=== PATIENT | female | born 1965 ===

== ENCOUNTER 2018-03-10 18:42 | Observation (INO) | payer MEDICAID, OTHER ==
[2018-03-10] MEDS ORDERED: Sodium Chloride 0.9% 1,000 ML IV STA (19:24)
--- NOTE | 2018-03-10 19:29 | ED PDOC ---
HPI: Chest Pain Time Seen by Provider: 03/10/18 19:01 Chief Complaint (Nursing): Chest Pain Chief Complaint (Provider): chest pain History Per: Patient History/Exam Limitations: no limitations Onset/Duration Of Symptoms: Days (4) Current Symptoms Are (Timing): Still Present Additional Complaint(s): Pt. with chest pain for 4 days with dyspnea. Also has numbness in both hands with pain in both antecubitus areas. Also has weakness all over with light- headedness and mild headache all over. Headache is not the worst in her life. Is mild and gradual onset. No nausea, vomit, diarrhea, abd pain. No leg pain , long distance travel, or hormone use. Past Medical History Reviewed: Nursing Documentation, Vital Signs Vital Signs: Last Vital Signs Temp 98.0 F 03/10/18 18:53 Pulse 84 03/10/18 19:06 Resp 19 03/10/18 18:53 BP 120/86 03/10/18 19:06 Pulse Ox 97 03/10/18 19:30 - Medical History PMH: HTN, Hypothyroidism Other PMH: arrythmia - Surgical History Surgical History: No Surg Hx - Family History Family History: States: Unknown Family Hx - Living Arrangements Living Arrangements: With Family - Allergies Allergies/Adverse Reactions: Allergies Allergy/AdvReac Type Severity Reaction Status Date / Time No Known Allergies Allergy Verified 03/10/18 18:53 Review of Systems ROS Statement: Except As Marked, All Systems Reviewed And Found Negative Cardiovascular: Positive for: Chest Pain, Light Headedness Respiratory: Positive for: Shortness of Breath Neurological: Positive for: Weakness, Numbness, Dizziness Physical Exam - Reviewed Nursing Documentation Reviewed: Yes Vital Signs Reviewed: Yes - Physical Exam Appears: Positive for: Non-toxic, No Acute Distress Head Exam: Positive for: ATRAUMATIC, NORMAL INSPECTION, NORMOCEPHALIC Skin: Positive for: Normal Color, Warm, DRY Eye Exam: Positive for: EOMI, Normal appearance, PERRL ENT: Positive for: Normal ENT Inspection Neck: Positive for: Normal, Painless ROM Cardiovascular/Chest: Positive for: Regular Rate, Rhythm. Negative for: Edema Respiratory: Positive for: CNT, Normal Breath Sounds Gastrointestinal/Abdominal: Positive for: Normal Exam, Soft. Negative for: Tenderness Back: Positive for: Normal Inspection. Negative for: L CVA Tenderness, R CVA Tenderness Extremity: Positive for: Normal ROM. Negative for: Tenderness, Pedal Edema Neurologic/Psych: Positive for: Alert, loan operations manager II-XII, Oriented. Negative for: Motor/Sensory Deficits, Mood/Affect, Aphasia, Facial Droop - Laboratory Results Result Diagrams: 03/10/18 19:44 03/10/18 19:44 - ECG ECG: Positive for: Interpreted By Me, Viewed By Me ECG Rhythm: Positive for: Normal QRS, Normal ST Segment, Sinus Rhythm O2 Sat by Pulse Oximetry: 97 Pulse Ox Interpretation: Normal - Radiology X-Ray: Interpreted by Me, Viewed By Me X-Ray Interpretation: No Acute Disease - CT Scan/US ct Other Rad Studies (CT/US): Read By Radiologist Other Rad Interpretation: no acute - Progress ED Course And Treament: 2332: Stable. AAOx3. Considering risk factors and pain with no prior work up , will admit. Spoke with Dr. Samson. Will admit for further eval and acs r/o. Pain gone currently. Disposition - Clinical Impression Clinical Impression: Chest pain - Patient ED Disposition Is Patient to be Admitted: Yes Counseled Patient/Family Regarding: Studies Performed, Diagnosis - Disposition Disposition Time: 23:33 Condition: STABLE - Pt Status Changed To: Hospital Disposition Of: Observation - POA Present On Arrival: None
[2018-03-10 19:59] LABS: ALBUMIN 4.3 g/dL (3.5-5.0); ALT/SGPT 47 U/L (9-52); AST/SGOT 36 U/L (14-36); BLOOD UREA NITROGEN 21 mg/dl (7-17); CALCIUM 9.7 mg/dL (8.4-10.2); GFR AFRICAN-AMERICAN > 60; GFR NON-AFRICAN AMERICAN > 60; HDL CHOLESTEROL 33 MG/DL (30-70)
[2018-03-10 20:06] LABS: INR 1.1 (0.9-1.2); PARTIAL THROMBOPLASTIN TIME 30.6 Seconds (25.6-37.1); PROTHROMBIN TIME 11.9 Seconds (9.8-13.1)
[2018-03-10 20:08] LABS: BASO # 0.1 K/uL (0.0-0.2); BASO % 0.7 % (0.0-2.0); EOS # 0.3 K/uL (0.0-0.7); EOS % 2.7 % (0.0-4.0); HEMOGLOBIN 12.3 g/dL (12.0-16.0); LYMPH # 3.1 K/uL (1.0-4.3); LYMPH % 29.3 % (20.0-40.0); MEAN CELL VOLUME 86.2 fl (81.0-99.0); MEAN CORPUSCULAR HGB CONC 33.6 g/dL (33.0-37.0); MEAN PLATELET VOLUME 7.1 fl (7.2-11.7); MONO # 0.6 K/uL (0.0-0.8); MONO % 5.8 % (0.0-10.0); NEUT # 6.5 K/uL (1.8-7.0); NEUT % 61.5 % (50.0-75.0); NRBC % 0.1 % (0.0-0.0); RBC 4.24 Mil/uL (3.80-5.20); RED CELL DISTRIBUTION WIDTH 14.4 % (11.5-14.5); WHITE BLOOD COUNT 10.6 K/uL (4.8-10.8)
[2018-03-10 20:10] LABS: LDL CHOLESTEROL 115 mg/dL (0-129)
--- NOTE | 2018-03-11 08:57 | CP.PCM.HP ---
History of Present Illness - History of Present Illness History of Present Illness: CC: chest pain HPI: 52 y/o woman w/ pmh of HTN and hypothyroidism presented to the ED w/ chest pain. Patient reports chest pain for 4 days with associated dyspnea. Patient reports that she cannot walk more than a block before becoming short of breath. Patient also reports numbness in both hands with pain in both antecubitus areas. Patient reports general weakness w/ light-headedness and mild tension headache. Patient denies abdominal pain, nausea, vomiting, diarrhea, dysuria, fever, leg pain, long distance travel, or hormone use. PMD: [facility] PMH: HTN, hypothyroidism meds: see med list allergies: NKDA PSH: x3 Fam: reports family histroy of HTN and other unknown heart issues SOC: denies smoking, alcohol, and drugs ROS: 12 points assessed and negative unless otherwise reported in HPI Present on Admission - Present on Admission Any Indicators Present on Admission: No History of DVT/PE: No History of Uncontrolled Diabetes: No Urinary Catheter: No Decubitus Ulcer Present: No Review of Systems - Review of Systems All systems: reviewed and no additional remarkable complaints except - Constitutional Constitutional: Headache, Weakness. absent: Chills, Fever - EENT Eyes: absent: Change in Vision - Cardiovascular Cardiovascular: As Per HPI, Chest Pain, Lightheadedness. absent: Leg Edema - Respiratory Respiratory: As Per HPI, Dyspnea - Gastrointestinal Gastrointestinal: absent: Abdominal Pain, Diarrhea, Nausea, Vomiting - Genitourinary Genitourinary: absent: Dysuria - Integumentary Integumentary: absent: Rash - Neurological Neurological: As Per HPI, Paresthesias Past Patient History - Infectious Disease Hx of Infectious Diseases: None - Past Social History Smoking Status: Never Smoked - CARDIAC Hx Hypertension: Yes - ENDOCRINE/METABOLIC Hx Hypothyroidism: Yes - PSYCHIATRIC Hx Substance Use: No - SURGICAL HISTORY Hx Surgeries: Yes Hx Section: Yes (x 3) - ANESTHESIA Hx Anesthesia: Yes Meds Allergies/Adverse Reactions: Allergies Allergy/AdvReac Type Severity Reaction Status Date / Time No Known Allergies Allergy Verified 03/10/18 18:53 Physical Exam - Constitutional Appears: Non-toxic, No Acute Distress - Head Exam Head Exam: ATRAUMATIC, NORMAL INSPECTION, NORMOCEPHALIC - Eye Exam Eye Exam: Normal appearance - ENT Exam ENT Exam: Mucous Membranes Moist - Neck Exam Neck exam: Positive for: Full Rom. Negative for: Tenderness - Respiratory Exam Respiratory Exam: Clear to Auscultation Bilateral. absent: Accessory Muscle Use , Decreased Breath Sounds, Rales, Rhonchi, Wheezes, Respiratory Distress - Cardiovascular Exam Cardiovascular Exam: REGULAR RHYTHM, RRR. absent: Tachycardia - GI/Abdominal Exam GI & Abdominal Exam: Normal Bowel Sounds, Soft. absent: Distended, Tenderness - Extremities Exam Extremities exam: Positive for: normal inspection. Negative for: calf tenderness, pedal edema - Neurological Exam Neurological exam: Alert, CN II-XII Intact, Oriented x3 - Skin Skin Exam: Dry, Intact, Normal Color, Warm Results - Vital Signs Recent Vital Signs: Last Vital Signs Temp 98.6 F 03/11/18 07:25 Pulse 74 03/11/18 07:25 Resp 17 03/11/18 07:25 BP 132/69 03/11/18 07:25 Pulse Ox 95 03/11/18 07:25 - Labs Result Diagrams: 03/10/18 19:44 03/10/18 19:44 Labs: Laboratory Results - last 24 hr 03/10/18 03/10/18 03/10/18 19:44 19:44 19:44 WBC 10.6 RBC 4.24 Hgb 12.3 Hct 36.6 MCV 86.2 MCH 29.0 MCHC 33.6 RDW 14.4 Plt Count 410 H MPV 7.1 L Neut % (Auto) 61.5 Lymph % (Auto) 29.3 Benzie % (Auto) 5.8 Eos % (Auto) 2.7 Baso % (Auto) 0.7 Neut # (Auto) 6.5 Lymph # (Auto) 3.1 Benzie # (Auto) 0.6 Eos # (Auto) 0.3 Baso # (Auto) 0.1 PT INR APTT Sodium 140 Potassium 4.2 Chloride 100 Carbon Dioxide 28 Anion Gap 16 BUN 21 H Creatinine 0.6 L Est GFR ( Amer) > 60 Est GFR (Non-Af Amer) > 60 Random Glucose 118 H Hemoglobin A1c 6.0 Calcium 9.7 Total Bilirubin 0.4 AST 36 ALT 47 Alkaline Phosphatase 98 Troponin I < 0.0120 Total Protein 8.6 H Albumin 4.3 Globulin 4.3 H Albumin/Globulin Ratio 1.0 Triglycerides 212 H Cholesterol 188 LDL Cholesterol Direct 115 HDL Cholesterol 33 03/10/18 03/11/18 19:44 03:35 WBC RBC Hgb Hct MCV MCH MCHC RDW Plt Count MPV Neut % (Auto) Lymph % (Auto) Benzie % (Auto) Eos % (Auto) Baso % (Auto) Neut # (Auto) Lymph # (Auto) Benzie # (Auto) Eos # (Auto) Baso # (Auto) PT 11.9 INR 1.1 APTT 30.6 Sodium Potassium Chloride Carbon Dioxide Anion Gap BUN Creatinine Est GFR ( Amer) Est GFR (Non-Af Amer) Random Glucose Hemoglobin A1c Calcium Total Bilirubin AST ALT Alkaline Phosphatase Troponin I < 0.0120 Total Protein Albumin Globulin Albumin/Globulin Ratio Triglycerides Cholesterol LDL Cholesterol Direct HDL Cholesterol Assessment & Plan (1) Chest pain Status: Acute (2) HTN (hypertension) Status: Chronic (3) Hypothyroidism Status: Chronic - Assessment and Plan (Free Text) Plan: afebrile, non-tachycardic, normotensive cardiology consult ordered troponin x2 negative EKG: NSR, no acute ST segement elevation/depression CXR: (preliminary) no active cardiopulmonary disease process f/u head CT f/u 3rd tropnonin f/u pro-BNP f/u Echo prophylactic measures: DVT lovenox 40 mg SC daily monitor for acute changes
--- NOTE | 2018-03-11 09:24 | CT ---
PROCEDURE: CT HEAD WITHOUT CONTRAST. HISTORY: headache COMPARISON: None available. TECHNIQUE: Axial computed tomography images were obtained through the head/brain without intravenous contrast. Radiation dose: Total exam DLP = 798 mGy-cm. This CT exam was performed using one or more of the following dose reduction techniques: Automated exposure control, adjustment of the mA and/or kV according to patient size, and/or use of iterative reconstruction technique. FINDINGS: HEMORRHAGE: No intracranial hemorrhage. BRAIN: No mass effect or edema. No gross atrophy or gross chronic microvascular ischemic changes. VENTRICLES: Unremarkable. No hydrocephalus. CALVARIUM: Unremarkable. PARANASAL SINUSES: Unremarkable as visualized. No significant inflammatory changes. MASTOID AIR CELLS: Unremarkable as visualized. No inflammatory changes. OTHER FINDINGS: Atherosclerotic calcifications - carotid siphons noted . IMPRESSION: No intracranial hemorrhage or mass effect. Atherosclerotic calcifications - carotid siphons noted . Concordant results (preliminary interpretation) provided by [facility].
[2018-03-11 09:48] LABS: B-TYPE NATRIURETIC PEPTIDE < 11.1 pg/ml (0-900)
--- NOTE | 2018-03-11 09:57 | RAD ---
HISTORY: dyspnea COMPARISON: No prior. FINDINGS: LUNGS: No active pulmonary disease. PLEURA: No significant pleural effusion identified, no pneumothorax apparent. CARDIOVASCULAR: Heart size probably top-normal OSSEOUS STRUCTURES: No significant abnormalities. VISUALIZED UPPER ABDOMEN: Normal. OTHER FINDINGS: Large body habitus IMPRESSION: No active disease.
--- NOTE | 2018-03-11 10:45 | CARD ---
APPROVED REPORT EXAM: Two-dimensional and M-mode echocardiogram with Doppler and color Doppler. Other Information Quality : GoodRhythm : NSR INDICATION Dyspnea Chest Pain 2D DIMENSIONS IVSd1.13 (0.7-1.1cm)LVDd4.82 (3.9-5.9cm) LVOT Diameter1.71 (1.8-2.4cm)PWd1.09 (0.7-1.1cm) IVSs1.55 (0.8-1.2cm)LVDs2.84 (2.5-4.0cm) FS (%) 41.0 %PWs1.58 (0.8-1.2cm) LVEF (%)55.0 (>50%) M-Mode DIMENSIONS Left Atrium (MM)3.50 (2.5-4.0cm)IVSd1.38 (0.7-1.1cm) Aortic Root2.84 (2.2-3.7cm)LVDd4.96 (4.0-5.6cm) Aortic Cusp Exc.2.04 (1.5-2.0cm)PWd1.32 (0.7-1.1cm) IVSs1.79 cmFS (%) 48 % LVDs2.56 (2.0-3.8cm)PWs1.85 cm Mitral Valve MV E Tblabuei87.7cm/sMV DECEL [id number] A Tqzfeojs24.2cm/s MV DIM77akH/A ratio0.7MVA (PHT)2.98cm2 TDI Lateral E' Peak V7.90cm/sMedial E' Peak V6.36cm/sE/Lateral E'7.2 E/Medial E'8.9 Pulmonary Valve PV Peak Ghmvvozt378.5cm/s LEFT VENTRICLE The left ventricle is normal size. There is normal left ventricular wall thickness. The left ventricular function is normal. The left ventricular ejection fraction is within the normal range. There is normal LV segmental wall motion. Transmitral Doppler flow pattern is Grade I-abnormal relaxation pattern. RIGHT VENTRICLE The right ventricle is normal size. There is normal right ventricular wall thickness. The right ventricular systolic function is normal. ATRIA The left atrium size is normal. The right atrium size is normal. AORTIC VALVE The aortic valve is mildly thickened. There is mild aortic regurgitation. There is no aortic valvular stenosis. MITRAL VALVE The mitral valve is normal in structure. There is no mitral valve stenosis. There is no mitral valve regurgitation noted. TRICUSPID VALVE The tricuspid valve is normal in structure. There is no tricuspid valve regurgitation noted. PULMONIC VALVE The pulmonary valve is normal in structure. There is mild pulmonic valvular regurgitation. GREAT VESSELS The aortic root is normal in size. The IVC is normal in size and collapses >50% with inspiration. PERICARDIAL EFFUSION The pericardium appears normal. <Conclusion> The left ventricle is normal size. There is normal left ventricular wall thickness. The left ventricular function is normal. The left ventricular ejection fraction is within the normal range. There is normal LV segmental wall motion. Transmitral Doppler flow pattern is Grade I-abnormal relaxation pattern. There is mild aortic regurgitation.
[2018-03-11] MEDS: Enoxaparin 40 mg Syringe SC SCH (10:53)
--- NOTE | 2018-03-11 11:23 | CP.PCM.CON ---
History of Present Illness - History of Present Illness History of Present Illness: Consultation for chest pain HPI: 52 year old female with PMHx of HTN and hypothyroid presented to the ED with chest pain and SOB. Pt described the pain as sharp and radiating down both arms. She states that the pain has been going on for "a while" and notes that it hurts when she presses on her left parasternal chest wall. Patient also states that she cannot walk for longer than a block without becoming short of breath. She has not felt any pain like this in the past. She denies any syncopal episodes or palpitations. Review of Systems - Review of Systems All systems: reviewed and no additional remarkable complaints except - Constitutional Constitutional: absent: Chills, Fever - Cardiovascular Cardiovascular: Chest Pain, Dyspnea - Respiratory Respiratory: absent: Cough - Gastrointestinal Gastrointestinal: absent: Abdominal Pain - Neurological Neurological: Paresthesias, Radicular Pain Past Patient History - Infectious Disease Hx of Infectious Diseases: None - Past Social History Smoking Status: Never Smoked - CARDIAC Hx Hypertension: Yes - ENDOCRINE/METABOLIC Hx Hypothyroidism: Yes - PSYCHIATRIC Hx Substance Use: No - SURGICAL HISTORY Hx Surgeries: Yes Hx Section: Yes (x 3) - ANESTHESIA Hx Anesthesia: Yes Meds Allergies/Adverse Reactions: Allergies Allergy/AdvReac Type Severity Reaction Status Date / Time No Known Allergies Allergy Verified 03/10/18 18:53 - Medications Medications: Current Medications Enoxaparin Sodium (Lovenox) 40 mg SC DAILY [facility] PRN Reason: Protocol Last Admin: 03/11/18 10:53 Dose: 40 mg Levothyroxine Sodium (Synthroid) 50 mcg PO DAILY [facility] Metoprolol Tartrate (Lopressor) 25 mg PO BID [facility] Physical Exam - Constitutional Appears: Well, No Acute Distress - Head Exam Head Exam: ATRAUMATIC, NORMOCEPHALIC - Eye Exam Eye Exam: EOMI, Normal appearance, PERRL - ENT Exam ENT Exam: Mucous Membranes Moist - Neck Exam Neck exam: Positive for: Normal Inspection - Respiratory Exam Respiratory Exam: Chest Wall Tenderness, Clear to Auscultation Bilateral, NORMAL BREATHING PATTERN - Cardiovascular Exam Cardiovascular Exam: REGULAR RHYTHM, +S1, +S2. absent: Diastolic murmur, Gallop , Rubs, Systolic Murmur - GI/Abdominal Exam GI & Abdominal Exam: Normal Bowel Sounds, Soft. absent: Tenderness - Neurological Exam Neurological exam: Alert, Oriented x3 - Psychiatric Exam Psychiatric exam: Normal Affect, Normal Mood Results - Vital Signs Recent Vital Signs: Last Vital Signs Temp 98.6 F 03/11/18 07:25 Pulse 74 03/11/18 07:25 Resp 17 03/11/18 07:25 BP 132/69 03/11/18 07:25 Pulse Ox 95 03/11/18 07:25 - Labs Result Diagrams: 03/10/18 19:44 03/10/18 19:44 Labs: Laboratory Results - last 24 hr 03/10/18 03/10/18 03/10/18 19:44 19:44 19:44 WBC 10.6 RBC 4.24 Hgb 12.3 Hct 36.6 MCV 86.2 MCH 29.0 MCHC 33.6 RDW 14.4 Plt Count 410 H MPV 7.1 L Neut % (Auto) 61.5 Lymph % (Auto) 29.3 Randolph % (Auto) 5.8 Eos % (Auto) 2.7 Baso % (Auto) 0.7 Neut # (Auto) 6.5 Lymph # (Auto) 3.1 Randolph # (Auto) 0.6 Eos # (Auto) 0.3 Baso # (Auto) 0.1 PT INR APTT Sodium 140 Potassium 4.2 Chloride 100 Carbon Dioxide 28 Anion Gap 16 BUN 21 H Creatinine 0.6 L Est GFR ( Amer) > 60 Est GFR (Non-Af Amer) > 60 Random Glucose 118 H Hemoglobin A1c 6.0 Calcium 9.7 Total Bilirubin 0.4 AST 36 ALT 47 Alkaline Phosphatase 98 Troponin I < 0.0120 NT-Pro-B Natriuret Pep Total Protein 8.6 H Albumin 4.3 Globulin 4.3 H Albumin/Globulin Ratio 1.0 Triglycerides 212 H Cholesterol 188 LDL Cholesterol Direct 115 HDL Cholesterol 33 03/10/18 03/11/18 19:44 03:35 WBC RBC Hgb Hct MCV MCH MCHC RDW Plt Count MPV Neut % (Auto) Lymph % (Auto) Randolph % (Auto) Eos % (Auto) Baso % (Auto) Neut # (Auto) Lymph # (Auto) Randolph # (Auto) Eos # (Auto) Baso # (Auto) PT 11.9 INR 1.1 APTT 30.6 Sodium Potassium Chloride Carbon Dioxide Anion Gap BUN Creatinine Est GFR ( Amer) Est GFR (Non-Af Amer) Random Glucose Hemoglobin A1c Calcium Total Bilirubin AST ALT Alkaline Phosphatase Troponin I < 0.0120 NT-Pro-B Natriuret Pep < 11.1 Total Protein Albumin Globulin Albumin/Globulin Ratio Triglycerides Cholesterol LDL Cholesterol Direct HDL Cholesterol Assessment & Plan (1) Chest pain Assessment and Plan: with typical and atypical features pretest probability intermediate ASCVD score is high plan for stress test Status: Acute (2) HTN (hypertension) Status: Chronic (3) Hypothyroidism Status: Chronic
--- NOTE | 2018-03-11 14:45 | CARD ---
APPROVED REPORT EKG Measurement Heart [id number] <Conclusion> Normal sinus rhythm Nonspecific T wave abnormality Abnormal ECG
--- NOTE | 2018-03-11 16:17 | CARD ---
APPROVED REPORT EKG Measurement Heart [id number] [place] [id number] <Conclusion> Normal sinus rhythm Nonspecific T wave abnormality Abnormal ECG
[2018-03-11] MEDS ORDERED: Apap-Butalbital-Caffeine 325-50-40mg Tab PO PRN (16:23)
--- NOTE | 2018-03-11 16:23 | CARD ---
APPROVED REPORT EKG Measurement Heart [id number] <Conclusion> Normal sinus rhythm Normal ECG
[2018-03-11] MEDS: Pantoprazole 40 mg EC Tab PO SCH (21:29)
[2018-03-12 00:25] VITALS: RESP 18
[2018-03-12 04:54] VITALS: O2SAT 96
[2018-03-12 08:18] VITALS: BP 118/79; PULSE 57; TEMP 97.7
--- NOTE | 2018-03-12 08:38 | CP.PCM.PN ---
Subjective - Date & Time of Evaluation Date of Evaluation: 03/12/18 Time of Evaluation: 07:30 - Subjective Subjective: Patient seen and examined this morning at bedside w/ Dr. Samson. There are no acute events overnight, NAD. The patient denies chest pain and is feeling better. The patient denies headaches, SOB, abdominal pain, nausea, vomiting, diarrhea, dysuria, or fever. Objective - Vital Signs/Intake and Output Vital Signs (last 24 hours): Temp Pulse Resp BP Pulse Ox 97.7 F 57 L 18 118/79 96 03/12/18 08:18 03/12/18 08:18 03/12/18 08:18 03/12/18 08:18 03/12/18 08:18 - Medications Medications: Current Medications Acetaminophen (Tylenol 325mg Tab) 650 mg PO Q6 PRN PRN Reason: pain Last Admin: 03/11/18 21:26 Dose: 650 mg Acetaminophen/Butalbital/Caffeine (Fioricet) 1 tab PO BID PRN PRN Reason: Headache Enoxaparin Sodium (Lovenox) 40 mg SC DAILY [facility] PRN Reason: Protocol Last Admin: 03/11/18 10:53 Dose: 40 mg Levothyroxine Sodium (Synthroid) 50 mcg PO DAILY [facility] Metoprolol Tartrate (Lopressor) 25 mg PO BID [facility] Last Admin: 03/11/18 17:22 Dose: 25 mg Pantoprazole Sodium (Protonix Ec Tab) 40 mg PO DAILY [facility] Last Admin: 03/11/18 21:29 Dose: 40 mg - Labs Labs: 03/10/18 19:44 03/10/18 19:44 PT 11.9 Seconds (9.8-13.1) 03/10/18 19:44 INR 1.1 (0.9-1.2) 03/10/18 19:44 APTT 30.6 Seconds (25.6-37.1) 03/10/18 19:44 - Constitutional Appears: Non-toxic, No Acute Distress - Head Exam Head Exam: ATRAUMATIC, NORMAL INSPECTION, NORMOCEPHALIC - Eye Exam Eye Exam: Normal appearance - ENT Exam ENT Exam: Mucous Membranes Moist - Neck Exam Neck Exam: Full ROM. absent: Tenderness - Respiratory Exam Respiratory Exam: Clear to Ausculation Bilateral. absent: Accessory Muscle Use , Decreased Breath Sounds, Rales, Rhonchi, Wheezes, Respiratory Distress - Cardiovascular Exam Cardiovascular Exam: REGULAR RHYTHM. absent: Tachycardia - GI/Abdominal Exam GI & Abdominal Exam: Soft, Normal Bowel Sounds. absent: Distended, Tenderness - Extremities Exam Extremities Exam: Normal Inspection. absent: Calf Tenderness - Neurological Exam Neurological Exam: Alert, Awake, Normal Gait, Oriented x3 - Skin Skin Exam: Dry, Intact, Normal Color, Warm Assessment and Plan (1) Chest pain Status: Acute (2) HTN (hypertension) Status: Chronic (3) Hypothyroidism Status: Chronic - Assessment and Plan (Free Text) Plan: c/w present management afebrile, non-tachycardic, normotensive cardiology recommendations appreciated troponin x3 negative pro-BNP: <11.1 EKG: NSR, no acute ST segement elevation/depression CXR: no active cardiopulmonary disease process CT head: no hemorrhage or mass effect Echo: Normal EF, LV normal size, function, thickness, and motion prophylactic measures: DVT lovenox 40 mg SC daily monitor for acute changes
[2018-03-12] MEDS ORDERED: Levothyroxine 50 MCG TAB PO SCH (09:00)
[2018-03-12] MEDS: Enoxaparin 40 mg Syringe SC SCH (09:20)
[2018-03-12] MEDS: Pantoprazole 40 mg EC Tab PO SCH (09:20)
--- NOTE | 2018-03-12 12:44 | CP.PCM.DIS ---
Provider - Provider Date of Admission: 03/10/18 23:34 Attending physician: Eh Samson MD Primary care physician: Non [facility] Provider Time Spent in preparation of Discharge (in minutes): 15 Diagnosis - Discharge Diagnosis (1) Chest pain Status: Acute (2) HTN (hypertension) Status: Chronic (3) Hypothyroidism Status: Chronic Hospital Course - Lab Results Lab Results: Most Recent Lab Values WBC 10.6 K/uL (4.8-10.8) 03/10/18 19:44 RBC 4.24 Mil/uL (3.80-5.20) 03/10/18 19:44 Hgb 12.3 g/dL (12.0-16.0) 03/10/18 19:44 Hct 36.6 % (34.0-47.0) 03/10/18 19:44 MCV 86.2 fl (81.0-99.0) 03/10/18 19:44 MCH 29.0 pg (27.0-31.0) 03/10/18 19:44 MCHC 33.6 g/dL (33.0-37.0) 03/10/18 19:44 RDW 14.4 % (11.5-14.5) 03/10/18 19:44 Plt Count 410 K/uL (130-400) H 03/10/18 19:44 MPV 7.1 fl (7.2-11.7) L 03/10/18 19:44 Neut % (Auto) 61.5 % (50.0-75.0) 03/10/18 19:44 Lymph % (Auto) 29.3 % (20.0-40.0) 03/10/18 19:44 [place] % (Auto) 5.8 % (0.0-10.0) 03/10/18 19:44 Eos % (Auto) 2.7 % (0.0-4.0) 03/10/18 19:44 Baso % (Auto) 0.7 % (0.0-2.0) 03/10/18 19:44 Neut # (Auto) 6.5 K/uL (1.8-7.0) 03/10/18 19:44 Lymph # (Auto) 3.1 K/uL (1.0-4.3) 03/10/18 19:44 [place] # (Auto) 0.6 K/uL (0.0-0.8) 03/10/18 19:44 Eos # (Auto) 0.3 K/uL (0.0-0.7) 03/10/18 19:44 Baso # (Auto) 0.1 K/uL (0.0-0.2) 03/10/18 19:44 ESR 44 mm/hr (0-30) H 03/12/18 10:58 PT 11.9 Seconds (9.8-13.1) 03/10/18 19:44 INR 1.1 (0.9-1.2) 03/10/18 19:44 APTT 30.6 Seconds (25.6-37.1) 03/10/18 19:44 Sodium 140 mmol/l (132-148) 03/10/18 19:44 Potassium 4.2 MMOL/L (3.6-5.0) 03/10/18 19:44 Chloride 100 mmol/L (98-107) 03/10/18 19:44 Carbon Dioxide 28 mmol/L (22-30) 03/10/18 19:44 Anion Gap 16 (10-20) 03/10/18 19:44 BUN 21 mg/dl (7-17) H 03/10/18 19:44 Creatinine 0.6 mg/dl (0.7-1.2) L 03/10/18 19:44 Est GFR ( Amer) > 60 03/10/18 19:44 Est GFR (Non-Af Amer) > 60 03/10/18 19:44 Random Glucose 118 mg/dL (65-105) H 03/10/18 19:44 Hemoglobin A1c 6.0 % (4.2-6.5) 03/10/18 19:44 Calcium 9.7 mg/dL (8.4-10.2) 03/10/18 19:44 Total Bilirubin 0.4 mg/dl (0.2-1.3) 03/10/18 19:44 AST 36 U/L (14-36) 03/10/18 19:44 ALT 47 U/L (9-52) 03/10/18 19:44 Alkaline Phosphatase 98 U/L (38-126) 03/10/18 19:44 Troponin I < 0.0120 ng/mL (0.00-0.120) 03/11/18 12:02 NT-Pro-B Natriuret Pep < 11.1 pg/ml (0-900) 03/11/18 03:35 Total Protein 8.6 G/DL (6.3-8.2) H 03/10/18 19:44 Albumin 4.3 g/dL (3.5-5.0) 03/10/18 19:44 Globulin 4.3 gm/dL (2.2-3.9) H 03/10/18 19:44 Albumin/Globulin Ratio 1.0 (1.0-2.1) 03/10/18 19:44 Triglycerides 212 mg/DL (0-149) H 03/10/18 19:44 Cholesterol 188 mg/dL (0-199) 03/10/18 19:44 LDL Cholesterol Direct 115 mg/dL (0-129) 03/10/18 19:44 HDL Cholesterol 33 MG/DL (30-70) 03/10/18 19:44 - Hospital Course Hospital Course: 52 y/o woman w/ pmh of HTN and hypothyroidism presented to the ED w/ chest pain. Patient had EKG, CXR, and echo which were all WNL. Patient's troponin x3 were negative. Patient reports feeling better and denies any chest pain since admission. Patient seen by cardiology. Patient has been seen, examined, and deemed medically fit for discharge home. Patient to be discharged w/ eliquis, aspirin, and lopressor. Patient to have stress test as outpatient. Patient to follow up w/ PMD and cardiology in 1-2 weeks. Discharge Exam - Head Exam Head Exam: ATRAUMATIC, NORMAL INSPECTION, NORMOCEPHALIC - Eye Exam Eye Exam: Normal appearance - ENT Exam ENT Exam: Mucous Membranes Moist - Neck Exam Neck exam: Full Rom - Respiratory Exam Respiratory Exam: Clear to PA & Lateral. absent: Accessory Muscle Use, Decreased Breath Sounds, Rales, Rhonchi, Wheezes, Respiratory Distress - Cardiovascular Exam Cardiovascular Exam: REGULAR RHYTHM, RRR. absent: Tachycardia - GI/Abdominal Exam GI & Abdominal Exam: Normal Bowel Sounds, Soft. absent: Distended, Tenderness - Extremities Exam Extremities exam: normal inspection - Neurological Exam Neurological exam: Alert, Normal Gait, Oriented x3 - Skin Skin Exam: Dry, Intact, Normal Color, Warm Discharge Plan - Discharge Medications Prescriptions: Apixaban [Eliquis] 5 mg PO BID #60 tablet Aspirin 81 mg PO DAILY #30 tab.chew Metoprolol Tartrate [Lopressor] 25 mg PO BID #60 tab - Follow Up Plan Condition: STABLE Disposition: HOME/ ROUTINE Instructions: Chest Pain (DC)
--- NOTE | 2018-03-13 00:03 | CP.PCM.PN ---
Subjective - Date & Time of Evaluation Date of Evaluation: 03/12/18 Time of Evaluation: 10:00 - Subjective Subjective: ACS ruled out pt prefers to go home and have stress test as outpt Objective - Vital Signs/Intake and Output Vital Signs (last 24 hours): Temp Pulse Resp BP Pulse Ox 97.7 F 57 L 18 118/79 96 03/12/18 08:18 03/12/18 09:21 03/12/18 08:18 03/12/18 09:21 03/12/18 08:18 - Labs Labs: 03/10/18 19:44 03/10/18 19:44 PT 11.9 Seconds (9.8-13.1) 03/10/18 19:44 INR 1.1 (0.9-1.2) 03/10/18 19:44 APTT 30.6 Seconds (25.6-37.1) 03/10/18 19:44 - Constitutional Appears: Well - Head Exam Head Exam: ATRAUMATIC, NORMAL INSPECTION, NORMOCEPHALIC - Eye Exam Eye Exam: EOMI, Normal appearance, PERRL Pupil Exam: NORMAL ACCOMODATION, PERRL - ENT Exam ENT Exam: Mucous Membranes Moist, Normal Exam - Neck Exam Neck Exam: Full ROM, Normal Inspection. absent: Lymphadenopathy - Respiratory Exam Respiratory Exam: Clear to Ausculation Bilateral, NORMAL BREATHING PATTERN - Cardiovascular Exam Cardiovascular Exam: REGULAR RHYTHM, +S1, +S2, Murmur - GI/Abdominal Exam GI & Abdominal Exam: Soft, Normal Bowel Sounds. absent: Tenderness - Extremities Exam Extremities Exam: Full ROM, Normal Capillary Refill, Normal Inspection. absent : Joint Swelling, Pedal Edema - Back Exam Back Exam: NORMAL INSPECTION - Neurological Exam Neurological Exam: Alert, Awake, CN II-XII Intact, Normal Gait, Oriented x3 - Psychiatric Exam Psychiatric exam: Normal Affect, Normal Mood - Skin Skin Exam: Dry, Intact, Normal Color, Warm Assessment and Plan (1) Chest pain Assessment & Plan: ACS ruled out pt prefers to go home and have stress test as outpt stable to dc home f/u next Friday at [address] [place] [address] Status: Acute (2) HTN (hypertension) Assessment & Plan: resume pt on metoprolol Status: Chronic (3) Hypothyroidism Status: Chronic
== END 2018-03-12 12:39 | disposition home or self-care (01) ==
LOC: SUPCPDRO 18:42 → H.ER 18:42 → H.ERHOLD 23:34 → H.TEL 03-11 13:50
PROVIDERS: ADMIT Internal Medicine; ATTEND Internal Medicine
DX: R07.9 Chest pain, unspecified (principal); I10 Essential (primary) hypertension; E03.9 Hypothyroidism, unspecified; G44.209 Tension-type headache, unspecified, not intractable
CPT/HCPCS: 36415; 70450; 71045; 80053; 80061; 81025; 83036; 83880; 84484; 85025; 85610; 85651; 85730; 86140; 93005; 93306; 96360; 96372; 99285; G0378; J1650; J7030